=== PATIENT | female | born 1950 | race Caucasian/White ===

== ENCOUNTER → 2017-03-30 | Outpatient (CLI) | payer OTHER, MEDICARE | LOC: BRMIMAGING 14:29 | PROVIDERS: ATTEND Family Medicine | DX: Z12.31 Encounter for screening mammogram for malignant neoplasm of breast (principal) ==

== ENCOUNTER → 2018-04-28 | Outpatient (CLI) | payer OTHER, MEDICARE | LOC: BRMIMAGING 08:27 | PROVIDERS: ATTEND Family Medicine | DX: Z12.31 Encounter for screening mammogram for malignant neoplasm of breast (principal) ==

== ENCOUNTER → 2018-05-25 | Outpatient (CLI) | payer OTHER, MEDICARE | LOC: BRMIMAGING 13:59 | PROVIDERS: ATTEND Family Medicine | DX: Z13.820 Encounter for screening for osteoporosis (principal); M85.89 Other specified disorders of bone density and structure, multiple sites; Z82.62 Family history of osteoporosis ==